=== PATIENT | male | born 1990 | race Caucasian/White ===

== ENCOUNTER 2021-11-05 21:10 | Emergency (ER) | payer OTHER ==
[~2021-11-05] VITALS: Ht 172.7 cm; Wt 90.9 kg
[2021-11-05] MEDS ORDERED: PredniSONE 20 MG TABLET PO ONE (23:00)
[2021-11-05 23:24] VITALS: BP 140/71
[2021-11-05] MEDS ORDERED: DIPH25CA85 PO (23:29)
[2021-11-05] MEDS ORDERED: PRED-554 PO (23:29)
== END 2021-11-05 23:39 | disposition home or self-care (01) ==
LOC: EMS 21:11
DX: T78.40XA Allergy, unspecified, initial encounter (principal); X58.XXXA Exposure to other specified factors, initial encounter
CPT/HCPCS: 99283; J7512